=== PATIENT | male | born 1965 | race Caucasian/White ===

== ENCOUNTER 2017-04-16 10:43 | Emergency (ER) | payer MEDICARE, MEDICAID ==
[2017-04-16 10:54] VITALS: BP 117/54
--- NOTE | 2017-04-16 11:53 | UC ---
Abdominal Pain Male HPI - HPI Summary HPI Summary: Yesterday had diarrhea 4-5 times, mostly in the morning. Also felt gurgly tummy with sour burps. Today vomited x 1, also has had about 4 stools today. No loss of appetite, no fever, no belly pain. Denies blood in diarrhea or vomit. Took several months of minocycline for RA, but finished that course a few months ago. Was warned at [facility] that their water had high e. coli levels last week. Also got some blood/fluid in mouth while slaughtering chicken 2 days ago. - History of Current Complaint Chief Complaint: UCGI Stated Complaint: VOMITING/DIARRHEA Time Seen by Provider: 04/16/17 11:25 Hx Obtained From: Patient Radiates: No Aggravating Factor(s):: Food Alleviating Factor(s): Rest Associated Signs And Symptoms: Positive: Vomiting, Diarrhea. Negative: Fever, Cough, Constipation, Blood in Stool, Nausea - Allergies/Home Medications Allergies/Adverse Reactions: Allergies Allergy/AdvReac Type Severity Reaction Status Date / Time No Known Allergies Allergy Verified 04/16/17 10:50 Home Medications: Home Medications Minocycline HCl 50 mg PO 04/16/17 [History] PMH/Surg Hx/FS Hx/Imm Hx - Additional Past Medical History Additional PMH: RA Cardiovascular History: Hypertension Other History Of: Negative For: Anticoagulant Therapy - Surgical History Surgical History: Yes Surgery Procedure, Year, and Place: tonsilectomy. left inguinal hernia repair. ganglion cyst removed from ankle - Family History Known Family History: Positive: Hypertension - Social History Lives: With Family Alcohol Use: None Substance Use Type: None Smoking Status (MU): Heavy Every Day Tobacco Smoker Type: Cigarettes Amount Used/How Often: 1 PPD Length of Time of Smoking/Using Tobacco: 30+ years Have You Smoked in the Last Year: Yes Cessation Counseling: Patient Advised to Stop Review of Systems Constitutional: Negative Skin: Negative Eyes: Negative ENT: Negative Respiratory: Negative Cardiovascular: Negative Gastrointestinal: Vomiting, Diarrhea Genitourinary: Negative Motor: Negative Neurovascular: Negative Musculoskeletal: Negative Neurological: Negative Psychological: Negative All Other Systems Reviewed And Are Negative: Yes Physical Exam Triage Information Reviewed: Yes Appearance: No Pain Distress, Thin Vital Signs: Initial Vital Signs Temp 97.6 F 04/16/17 10:52 Pulse 84 04/16/17 10:52 Resp 14 04/16/17 10:52 BP 117/54 04/16/17 10:52 Pulse Ox 96 04/16/17 10:52 Vital Signs Reviewed: Yes Eye Exam: Normal, Other - PERRL Eyes: Positive: Conjunctiva Clear ENT Exam: Normal ENT: Positive: Normal ENT inspection, Hearing grossly normal, Pharynx normal, TMs normal, Tonsillar swelling Dental Exam: Other - dentures Neck exam: Normal Respiratory Exam: Normal, Other - occ prod cough Respiratory: Positive: Chest non-tender, Lungs clear, Normal breath sounds, No respiratory distress, No accessory muscle use Cardiovascular Exam: Normal Cardiovascular: Positive: RRR, No Murmur Abdomen Description: Positive: Nontender, Soft. Negative: CVA Tenderness (R), CVA Tenderness (L), Distended, Guarding Bowel Sounds: Positive: Present, Hyperactive Musculoskeletal Exam: Normal Neurological Exam: Normal Neurological: Positive: Alert Psychological Exam: Normal Skin Exam: Normal Abd Pain Male Course/Dx - Differential Dx/Clinical Impression Provider Diagnoses: acute diarrhea Discharge - Discharge Plan Condition: Stable Disposition: HOME Patient Education Materials: Acute Diarrhea (ED) Referrals: Sukumar Natarajan DO [Doctor of Osteopathy] - 1 Week Additional Instructions: As we discussed, your symptoms are mild and are likely to resolve within a few days. I have ordered stool testing because of your recent exposure to contaminated water. If your symptoms improve, you can hold back on the stool testing.
== END 2017-04-16 11:52 | disposition home or self-care (01) ==
LOC: UCEAST 10:43
DX: R19.7 Diarrhea, unspecified (principal); R11.10 Vomiting, unspecified; I10 Essential (primary) hypertension; F17.210 Nicotine dependence, cigarettes, uncomplicated
CPT/HCPCS: 99211; G0463

== ENCOUNTER 2017-06-09 10:13 | Emergency (ER) | payer MEDICARE, MEDICAID ==
[2017-06-09 10:25] VITALS: BP 119/73
--- NOTE | 2017-06-09 10:40 | UC ---
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 Has full ROM of arm without pain. Extremity is well perfused and warm to touch with palpable strong radial pulse. States symptoms began approximately three weeks ago after hitting post with sledge hammer while building a fence on his property. Denies other symptoms including facial or lower extremity weakness on right side. Speech is clear and coherent. Past medical history reviewed, medication history reviewed. Mr Cohen reports taking Ibuprofen 1000mg dose, counseled on maximum dosage and frequency of Ibuprofen dosing. - History of Current Complaint Chief Complaint: UCUpperExtremity Stated Complaint: R WRIST PAIN Time Seen by Provider: 06/09/17 10:26 Hx Obtained From: Patient Onset/Duration: Gradual Onset Severity Initially: Moderate Severity Currently: Severe Pain Intensity: 10 Pain Scale Used: 0-10 Numeric Location Of Pain: Radiates To - Right wrist radiates up arm Character: Sharp Aggravating Factor(s): Movement, Lifting Alleviating Factor(s): Rest Associated Signs And Symptoms: Positive: Weakness - Risk Factors Non-Orthopedic Risk Factor: Negative DVT Risk Factors: Negative Septic Arthritis Risk Factor: Negative - Allergies/Home Medications Allergies/Adverse Reactions: Allergies Allergy/AdvReac Type Severity Reaction Status Date / Time No Known Allergies Allergy Verified 06/09/17 10:20 PMH/Surg Hx/FS Hx/Imm Hx Previously Healthy: Yes Other History Of: Negative For: Anticoagulant Therapy - Surgical History Surgical History: Yes Surgery Procedure, Year, and Place: tonsilectomy. left inguinal hernia repair. ganglion cyst removed from ankle - Family History Known Family History: Positive: Hypertension - Social History Alcohol Use: None Substance Use Type: None Smoking Status (MU): Heavy Every Day Tobacco Smoker Type: Cigarettes Amount Used/How Often: 1 PPD Length of Time of Smoking/Using Tobacco: 30+ years Have You Smoked in the Last Year: Yes Review of Systems Constitutional: Negative Skin: Negative Eyes: Negative ENT: Negative Respiratory: Negative Cardiovascular: Negative Gastrointestinal: Negative Genitourinary: Negative Motor: Weakness - Right hand with decreased deputy general counsel strength Neurovascular: Negative Musculoskeletal: Negative Neurological: Negative Psychological: Negative Is Patient Immunocompromised?: No All Other Systems Reviewed And Are Negative: Yes Physical Exam Triage Information Reviewed: Yes Appearance: Well-Appearing Vital Signs: Initial Vital Signs Temp 97.2 F 06/09/17 10:21 Pulse 57 06/09/17 10:21 Resp 16 06/09/17 10:21 BP 119/73 06/09/17 10:21 Pulse Ox 98 06/09/17 10:21 Vital Signs Reviewed: Yes Neck exam: Normal Neck: Positive: Nontender Respiratory Exam: Normal Respiratory: Positive: Lungs clear, Normal breath sounds Cardiovascular Exam: Normal Cardiovascular: Positive: RRR Abdominal Exam: Normal Abdomen Description: Positive: Nontender Bowel Sounds: Positive: Present Musculoskeletal Exam: Other Musculoskeletal: Positive: Strength Limited @ - Right hand Neurological Exam: Normal Neurological: Positive: Alert Psychological Exam: Normal Skin Exam: Normal Upper Extremity Course/Dx - Differential Dx/Diagnosis Differential Diagnosis/HQI/PQRI: Arthritis, Fracture (Closed), Strain, Sprain Provider Diagnoses: Wrist strain / sprain Discharge - Discharge Plan Condition: Stable Disposition: HOME Patient Education Materials: Wrist Injury (ED) Referrals: Sukumar Natarajan DO [Primary Care Provider] - Sabina Summers MD [Medical Doctor] - Additional Instructions: Your X- ray was negative for fracture. Please follow up with orthopedics (Dr Summers) for continued pain and weakness. May return to urgent care or primary medical provider for increased weakness or pain.
--- NOTE | 2017-06-09 10:41 | RAD ---
Indication: Right wrist injury 3 views of the wrist demonstrates no fracture. No other bone or joint abnormality is identified. IMPRESSION: NO FRACTURE OF THE WRIST IS NOTED.
== END 2017-06-09 11:05 | disposition home or self-care (01) ==
LOC: UCEAST 10:13
DX: S63.501A Unspecified sprain of right wrist, initial encounter (principal); X58.XXXA Exposure to other specified factors, initial encounter; Y93.H3 Activity, building and construction; Y92.9 Unspecified place or not applicable; F17.210 Nicotine dependence, cigarettes, uncomplicated
CPT/HCPCS: 99212; G0463

== ENCOUNTER 2017-10-23 14:22 | Emergency (ER) | payer MEDICARE, MEDICAID ==
[2017-10-23 14:40] VITALS: BP 134/97
--- NOTE | 2017-10-23 15:25 | RAD ---
CLINICAL HISTORY: Right pain COMPARISON: None TECHNIQUE: Multiple contiguous axial CT scans were obtained of the abdomen and pelvis, without intravenous contrast enhancement. Coronal and sagittal multiplanar reformations are submitted for review. Oral contrast was not administered. FINDINGS: The study is limited by the lack of intravenous contrast. This limits evaluation of the solid organs and vasculature. Certainly LUNG BASES: There are nodules of the left lower lobe in the periphery, measuring up to 0.6 cm in size. LIVER: The liver is normal in shape, size, contour, and attenuation. BILE DUCTS: There is no intrahepatic or extrahepatic biliary dilatation. GALLBLADDER: The gallbladder is normal, without pericholecystic inflammatory change. PANCREAS: The pancreas is normal, without mass or ductal dilatation. SPLEEN: Normal in size and appearance. UPPER GI TRACT: Evaluation of the gastrointestinal tract is limited by incomplete gastric distention. The upper GI tract is unremarkable. SMALL BOWEL AND MESENTERY: The small bowel is normal in contour, course, and caliber. There is no obstruction or dilatation. COLON: The colon is normal in contour, course, caliber. There is no pericolonic inflammatory change. ADRENALS: Normal bilaterally. KIDNEYS: The kidneys are normal in shape, size, contour, and axis. There is no hydronephrosis or nephrolithiasis. BLADDER: The bladder is incompletely distended and is not well evaluated. PELVIC ORGANS: The prostate is diffusely enlarged. The seminal vesicles are symmetric. AORTA: There is calcific atherosclerotic disease of the abdominal aorta and its branches, without aneurysmal dilatation IVC: Unremarkable LYMPH NODES: There is no lymphadenopathy by size criteria. ABDOMINAL WALL: There is no evidence for abdominal wall hernia. BONES AND SOFT TISSUES: Degenerative changes are noted most pronounced at L4-L5 and L5-S1. There is a chronic appearing compression deformity versus a large Schmorl's node of L2. OTHER: None IMPRESSION: 1. LEFT LOWER LOBE LUNG NODULES MEASURING UP TO 0.6 CM IN SIZE. THE RECOMMENDATIONS FOR FOLLOWUP AND MANAGEMENT OF AN INCIDENTALLY DETECTED PULMONARY NODULE GREATER THAN OR EQUAL TO 6 MM BUT LESS THAN OR EQUAL TO 8 MM IN SIZE, IN A PATIENT WITHOUT A HISTORY OF MALIGNANCY, INCLUDE FOLLOWUP CT IN 6-12 MONTHS, THEN CONSIDER AGAIN AT 18-24 MONTHS FOR A LOW-RISK PATIENT OR FOLLOWUP CT IN 6-12 MONTHS, THEN AGAIN AT 18-24 MONTHS FOR A HIGH RISK PATIENT. 2. ATHEROSCLEROSIS. 3. DEGENERATIVE CHANGES. 4. NO APPRECIABLE HERNIA. NOTES: SIZE = AVERAGE LENGTH AND WIDTH; HIGH RISK IS DEFINED A HISTORY OF SMOKING OR OTHER KNOW RISK FACTORS FOR LUNG CANCER; LOW RISK IS DEFINED MINIMAL OR ABSENT HISTORY OF SMOKING OR OTHER KNOWN RISK FACTORS. Devan Marshall, PORTIA Steele, MAHESH Lawson, et al (2017) "Guidelines for Management of Incidental Pulmonary Nodules Detected on CT Images: From the Fleischner Society 2017." Radiology; 284(1): 228-243. doi:10.1148/radiol.2390034489
--- NOTE | 2017-10-23 15:44 | UC ---
Luciano Eagle Natalie, scribed for Carlos Sanchez MD on 10/23/17 at 1514 . Complaint Male HPI - HPI Summary HPI Summary: The pt is a 52 y/o M presenting to [facility] c/o constant pain in left groin area from bulging hernia worsening in the last two weeks. He has a lifting weight restriction of 20lbs, but whenever he lifts anything, the pain flares up for the last 6 months. The pain is described as constant burning and sore insides. The pain is rated 7/10. The pain is aggravated by eating full meals, lying on left side and is alleviated by nothing. Pt additionally c/o frequent urination ( 4 times/hour) and sleep loss. Pt denies pain in scrotal area. He has had similar episodes in the past after having surgery for the hernia in 2006. - History of Current Complaint Chief Complaint: UCGeneralIllness Stated Complaint: GROIN PAIN Time Seen by Provider: 10/23/17 14:43 Hx Obtained From: Patient Onset/Duration: Gradual Onset, Lasting Weeks - last six months, Still Present, Worse Since - last two weeks Severity Initially: Moderate Severity Currently: Moderate Pain Intensity: 7 Pain Scale Used: 0-10 Numeric Location: Groin - left Character: Burning Aggravating Factor(s): Other - eating full meals, lying on left side Alleviating Factor(s): Nothing - Allergies/Home Medications Allergies/Adverse Reactions: Allergies Allergy/AdvReac Type Severity Reaction Status Date / Time No Known Allergies Allergy Verified 10/23/17 14:40 Home Medications: Home Medications sulfADIAZINE (NF) [SulfADIAZine (NF)] 100 mg PO DAILY 10/23/17 [History Confirmed 10/23/17] PMH/Surg Hx/FS Hx/Imm Hx - Additional Past Medical History Additional PMH: two herniated disks, degenerative spine, rheumatoid arthritis in hands and elbows Other History Of: Negative For: Anticoagulant Therapy - Surgical History Surgical History: Yes Surgery Procedure, Year, and Place: tonsilectomy. left inguinal hernia repair. ganglion cyst removed from ankle - Family History Known Family History: Positive: Hypertension, Other - stroke, [place], prostate cancer, asthma, developed emphysema - Social History Alcohol Use: None Substance Use Type: None Smoking Status (MU): Heavy Every Day Tobacco Smoker Type: Cigarettes Amount Used/How Often: 1 PPD Length of Time of Smoking/Using Tobacco: 30+ years Have You Smoked in the Last Year: Yes Review of Systems Gastrointestinal: Other - left groin pain with bulge Genitourinary: Frequency - frequent urination - 4 times an hour, Other - no scrotal pain Neurological: Other - sleep loss All Other Systems Reviewed And Are Negative: Yes Physical Exam Triage Information Reviewed: Yes Appearance: Well-Appearing, Well-Nourished Vital Signs: Initial Vital Signs Temp 97.4 F 10/23/17 14:34 Pulse 72 10/23/17 14:34 Resp 20 10/23/17 14:34 BP 134/97 10/23/17 14:34 Pulse Ox 97 10/23/17 14:34 Vital Signs Reviewed: Yes Eye Exam: Normal ENT Exam: Normal Neck: Positive: Supple, Nontender Respiratory: Positive: Other: - Clear to auscultation Cardiovascular Exam: Normal Abdominal Exam: Other - small raised lump along left inguinal ligament, no scrotal masses, painful to palpation, no erythema Bowel Sounds: Positive: Present Musculoskeletal Exam: Normal Musculoskeletal: Positive: Strength Intact, ROM Intact Neurological Exam: Normal Neurological: Positive: Other: - A&Ox3 Psychological Exam: Normal Skin: Positive: Other - warm Diagnostics - Radiology CT Abd/Pel Xray Interpretation: No Acute Changes - 1. Left lower lobe lung nodules measuring up to 0.6 cm in size. The recommendations for follow up and management of an incidentally detected pulmonary nodule greater than or equal to 6 mm but less than or equal to 8 mm in size, in a patient without a history of malignancy, include follow up CT in 6-12 months, then consider again at 18- 24 months for a low-risk patient or follow up CT in 6-12 months, then again at 18-24 months for a high risk patient. 2. Atherosclerosis. 3. Degenerative changes. 4. No appreciable hernia. [facility] physician has reviewed this report. Radiology Interpretation Completed By: Radiologist Complaint Male Course/Dx - Course Course Of Treatment: no evidence of bowel herniation on ct, pt feels well, tolerating po, vitals stable, instructed to avoid heavy lifting and to fu with gen surgeon. agrees to and understnasds dc instructinos. - Differential Dx/Diagnosis Provider Diagnoses: INGUINAL PAIN Discharge - Discharge Plan Condition: Stable Disposition: HOME Patient Education Materials: Inguinal Hernia (ED) Forms: *Work Release Referrals: Sukumar Natarajan, [Primary Care Provider] - Bean Moncada MD [Medical Doctor] - Nikolas Torres MD [Medical Doctor] - Abdi Oro MD [Medical Doctor] - Additional Instructions: PLEASE MAKE AN APPOINTMENT TO SEE A GENERAL SURGEON WITHIN 1-2 WEEKS PLEASE AVOID STRENUOUS ACTIVITY AND HEAVY LIFTING PLEASE SEEK MEDICAL ATTENTION IMMEDIATELY IF YOU HAVE ANY WORSENING OR CONCERNING SYMPTOMS PLEASE MAKE AN APPOINTMENT TO BE SEEN BY YOUR PRIMARY CARE DOCTOR WITHIN 1 WEEK The documentation as recorded by the Luciano kerr Natalie accurately reflects the service I personally performed and the decisions made by me, Carlos Sanchez MD.
== END 2017-10-23 15:50 | disposition home or self-care (01) ==
LOC: UCEAST 14:22
DX: R10.32 Left lower quadrant pain (principal); F17.210 Nicotine dependence, cigarettes, uncomplicated
CPT/HCPCS: 74176; 81003; 99211; G0463

== ENCOUNTER 2018-08-20 12:08 | Emergency (ER) | payer MEDICAID, MEDICARE ==
[2018-08-20 12:24] VITALS: BP 149/95
--- NOTE | 2018-08-21 07:58 | UC ---
- Progress Note Progress Note: There were no x-rays ordered on August 20, 2018 therefore there is no discrepancy. Course/Dx - Diagnoses Provider Diagnoses: Patient left without being seen Discharge - Sign-Out/Discharge Documenting (check all that apply): Patient Departure All imaging exams completed and their final reports reviewed: No Studies - Discharge Plan Condition: Stable Disposition: LEFT WITHOUT BEING SEEN Referrals: Shannan Todd MD [Primary Care Provider] - - Billing Disposition and Condition Condition: STABLE Disposition: Left Without Being Seen
== END 2018-08-20 14:37 | disposition left against medical advice (07) ==
LOC: UCEAST 12:08
DX: M25.429 Effusion, unspecified elbow (principal); Z53.21 Procedure and treatment not carried out due to patient leaving prior to being seen by health care provider

== ENCOUNTER 2019-01-14 07:16 | Emergency (ER) | payer MEDICARE ==
[2019-01-14 07:27] VITALS: BP 157/97
--- NOTE | 2019-01-14 07:29 | UC ---
Respiratory Complaint HPI - HPI Summary HPI Summary: 3-4 WEEKS OF COUGH, NASAL CONGESTION AND CHEST CONGESTION WHICH HE FEELS IS GETTING WORSE. FEELS SHORT OF BREATH AND THE COUGH IS KEEPING HIM UP AT NIGHT. HE HAS SUBJECTIVE FEVER AND CHILLS AND FATIGUE. THE PATIENT IS A HEAVY SMOKER. NO NAUSEA/VOMITING. - History of Current Complaint Chief Complaint: UCRespiratory Stated Complaint: COUGH CONGESTION RESP ISSUE Time Seen by Provider: 01/14/19 07:28 Hx Obtained From: Patient Onset/Duration: Gradual Onset, Lasting Weeks, Still Present Timing: Constant Severity Initially: Moderate Severity Currently: Moderate Pain Intensity: 0 Pain Scale Used: 0-10 Numeric Character: Cough: Productive Aggravating Factors: Deep Breaths, Recumbent Position Alleviating Factors: Nothing Associated Signs And Symptoms: Positive: Dyspnea, Fever, Chills, Wheezing, URI, Nasal Congestion, Sinus Discomfort - Allergies/Home Medications Allergies/Adverse Reactions: Allergies Allergy/AdvReac Type Severity Reaction Status Date / Time NSAIDS (Non-Steroidal Allergy JOINT Verified 01/14/19 07:27 Anti-Inflamma STIFFNESS PMH/Surg Hx/FS Hx/Imm Hx Cardiovascular History: Hypertension Other History Of: Negative For: Anticoagulant Therapy - Surgical History Surgical History: Yes Surgery Procedure, Year, and Place: tonsilectomy. left inguinal hernia repair. ganglion cyst removed from ankle - Family History Known Family History: Positive: Hypertension, Other - stroke, [place], prostate cancer, asthma, developed emphysema - Social History Alcohol Use: None Substance Use Type: None Smoking Status (MU): Heavy Every Day Tobacco Smoker Type: Cigarettes Amount Used/How Often: 1 PPD Length of Time of Smoking/Using Tobacco: 30+ years Have You Smoked in the Last Year: Yes Review of Systems All Other Systems Reviewed And Are Negative: Yes Constitutional: Positive: Fever, Chills, Fatigue ENT: Positive: Nasal Discharge, Sinus Congestion Respiratory: Positive: Shortness Of Breath, Cough Cardiovascular: Positive: Negative Gastrointestinal: Positive: Negative Physical Exam Triage Information Reviewed: Yes Appearance: Well-Appearing, No Pain Distress, Well-Nourished Vital Signs: Initial Vital Signs Temp 98.2 F 01/14/19 07:22 Pulse 95 01/14/19 07:22 Resp 22 01/14/19 07:22 BP 157/97 01/14/19 07:22 Pulse Ox 96 01/14/19 07:22 Vital Signs Reviewed: Yes Eyes: Positive: Conjunctiva Clear ENT: Positive: Hearing grossly normal, Pharyngeal erythema, TMs normal Neck: Positive: Supple, Nontender, No Lymphadenopathy Respiratory: Positive: No respiratory distress, No accessory muscle use, Decreased breath sounds, Rhonchi - diffuse Cardiovascular Exam: Normal Abdomen Description: Positive: Soft Musculoskeletal: Positive: No Edema Neurological: Positive: Alert Psychological: Positive: Age Appropriate Behavior Skin: Negative: Rashes Diagnostics - Radiology CXR Radiology Interpretation Completed By: Radiologist Summary of Radiographic Findings: HYPERINFLATION, CONSISTENT WITH COPD. NO ACTIVE CARDIOPULMONARY DISEASE. Respiratory Course/Dx - Differential Dx/Diagnosis Provider Diagnosis: COPD exacerbation Discharge - Sign-Out/Discharge Documenting (check all that apply): Patient Departure All imaging exams completed and their final reports reviewed: Yes - Discharge Plan Condition: Stable Disposition: HOME Prescriptions: Albuterol HFA INHALER* [Ventolin HFA Inhaler*] 2 puff INH Q4H PRN #1 mdi PRN Reason: Shortness Of Breath Azithromycin 500 mg PO DAILY #5 tab predniSONE TAB* [Deltasone TAB*] 50 mg PO DAILY #5 tab Patient Education Materials: COPD (Chronic Obstructive Pulmonary Disease) (ED) Referrals: Jose G Ramsey, SANITARIAN [Primary Care Provider] - 2 Weeks Additional Instructions: CHEST X-RAY TODAY SHOWS CHANGES CONSISTENT WITH COPD BUT NO ACTIVE DISEASE/ PNEUMONIA. GIVEN YOUR UNDERLYING LUNG DISORDER AND THE LENGTH OF TIME OF ILLNESS WILL COVER YOU FOR POSSIBLE DEVELOPING BACTERIAL INFECTION WITH AZITHROMYCIN. TAKE THE MEDICINE ONCE DAILY FOR THE FULL 5 DAYS. WILL ALSO GIVE PREDNISONE AND ALBUTEROL TO HELP WITH AIRWAY INFLAMMATION. FOLLOW-UP WITH YOUR PCP IN THE NEXT COUPLE OF WEEKS IF YOU'RE NOT IMPROVING EXPECTED. YOU WILL ALSO NEED TO DISCUSS YOUR BLOOD PRESSURE WITH HIM IT WAS SLIGHTLY ELEVATED TODAY. THIS MAY BE DUE TO YOUR ACUTE ILLNESS BUT SHOULD BE REASSESSED. CONTINUE WITH YOUR SMOKING CESSATION EFFORTS. - Billing Disposition and Condition Condition: STABLE Disposition: Home
== END 2019-01-14 08:24 | disposition home or self-care (01) ==
LOC: UCEAST 07:16
DX: J44.1 Chronic obstructive pulmonary disease with (acute) exacerbation (principal); R50.9 Fever, unspecified; R09.81 Nasal congestion; I10 Essential (primary) hypertension; Z88.6 Allergy status to analgesic agent; F17.210 Nicotine dependence, cigarettes, uncomplicated
CPT/HCPCS: 71046; 99212; G0463

== ENCOUNTER 2020-08-17 14:02 | Inpatient (IN) ==
[2020-08-17] MEDS ORDERED: Morphine 4 MG/ML VIAL (1 ml) IV ONE (14:29)
[2020-08-17] MEDS ORDERED: Ondansetron 4 mg VIAL 2 MG/ML 2 ml VIAL IV ONE (14:29)
[2020-08-17] MEDS ORDERED: NS 0.9% 1000 ml BAG 1,000 ML IV ONE (14:29)
[2020-08-17 15:02] LABS: ABS Basophils 0.1 10^3/ul (0-0.2); ABS Eosinophils 0.3 10^3/ul (0-0.6); ABS Monocytes 1.3 10^3/ul (0-0.8); ABS Neutrophils 7.3 10^3/ul (1.5-7.7); Eosinophil % 2.3 %; Hematocrit 38 % (42-52); Hemoglobin 12.8 g/dL (14.0-18.0); Lymphocyte % 18.2 %; Mean Corpuscular HGB Conc 34 g/dL (31-36); Mean Corpuscular Hemoglobin 32 pg (27-31); Mean Corpuscular Volume 94 fL (80-94); Mean Platelet Volume 6.3 fL (7.4-10.4); Platelet Count 347 10^3/uL (150-450); Red Blood Count 3.99 10^6 /uL (4.18-5.48); Red Cell Distribution Width 13 % (10-15)
[2020-08-17 15:22] LABS: Albumin 3.8 g/dL (3.2-5.2); BUN/Creatinine Ratio 24.2 (8-20); C Reactive Protein 78.88 mg/L (<8.01); Calcium 8.9 mg/dL (8.6-10.3); EGFR African American 150.5 (>60); EGFR Non-African American 124.4 (>60); Globulin 3.7 g/dL (2-4); Potassium 3.8 mmol/L (3.5-5.0); Total Bilirubin 0.2 mg/dL (0.2-1.0); Total Protein 7.5 g/dL (6.4-8.9)
[2020-08-17] MEDS ORDERED: Iohexol 300 (CONTRAST) 10 ML SDV IV ONE (15:27)
[2020-08-17] MEDS ORDERED: Piperacillin/Tazobac ADVAN 3.375 GM in NS 0.9% 100 ml BAG 100 ML IV ONE (16:01)
[2020-08-17] MEDS ORDERED: Albuterol HFA INHALER 8 gm MDI INH PRN (17:18)
[2020-08-17] MEDS ORDERED: Albuterol 2.5mg/3 ml (0.083%) NEB.SOLN INH PRN (17:18)
[2020-08-17] MEDS ORDERED: Al Hydrox/Mg Hydrox/Simet LIQ 30 ML UDC PO PRN (17:20)
[2020-08-17] MEDS ORDERED: Ondansetron 4 mg VIAL 2 MG/ML 2 ml VIAL IV PRN (17:20)
[2020-08-17] MEDS ORDERED: Zosyn per Pharmacy NOTE FOLLOW UP SCH (18:00)
[2020-08-17] MEDS: Mometasone/Formoter 200/5 MDI INH SCH (20:17)
[2020-08-17] MEDS: NS 0.9% 1000 ml BAG 1,000 ML IV SCH (21:01)
[2020-08-17] MEDS: ZOSYN 3.375 GM Q8H per EXTENDED INFUSION IV SCH (21:02)
[2020-08-18] MEDS: NS 0.9% 1000 ml BAG 1,000 ML IV SCH (04:38)
[2020-08-18] MEDS: ZOSYN 3.375 GM Q8H per EXTENDED INFUSION IV SCH ×3 (04:39→21:49)
[2020-08-18 07:12] LABS: ABS Eosinophils 0.3 10^3/ul (0-0.6); ABS Lymphocytes 1.2 10^3/ul (1.0-4.8); ABS Monocytes 1.1 10^3/ul (0-0.8); ABS Neutrophils 7.2 10^3/ul (1.5-7.7); Eosinophil % 2.9 %; Hematocrit 37 % (42-52); Hemoglobin 12.5 g/dL (14.0-18.0); Lymphocyte % 11.9 %; Mean Corpuscular HGB Conc 33 g/dL (31-36); Mean Corpuscular Hemoglobin 32 pg (27-31); Mean Corpuscular Volume 95 fL (80-94); Mean Platelet Volume 6.2 fL (7.4-10.4); Platelet Count 323 10^3/uL (150-450); Red Blood Count 3.95 10^6 /uL (4.18-5.48); Red Cell Distribution Width 13 % (10-15); White Blood Count 9.8 10^3/uL (3.5-10.8)
[2020-08-18 07:26] LABS: BUN/Creatinine Ratio 16.2 (8-20); C Reactive Protein 63.83 mg/L (<8.01); EGFR African American 145.4 (>60); EGFR Non-African American 120.2 (>60); Potassium 3.7 mmol/L (3.5-5.0)
[2020-08-18] MEDS: Mometasone/Formoter 200/5 MDI INH SCH ×2 (07:36→20:07)
[2020-08-18] MEDS: Nicotine PATCH 21 MG/24 HR PATCH TRANSDERM SCH (10:14)
[2020-08-18] MEDS ORDERED: Polyethylene Glycol 3350 17 GM PACKET PO PRN (17:01)
[2020-08-18] MEDS ORDERED: fentaNYL 100 mcg/2 ml 50 MCG/ML VIAL ONE ×2 (17:31→18:47)
[2020-08-18 19:48] LABS: ABS Basophils 0.1 10^3/ul (0-0.2); ABS Eosinophils 0.1 10^3/ul (0-0.6); ABS Lymphocytes 1.4 10^3/ul (1.0-4.8); ABS Monocytes 0.8 10^3/ul (0-0.8); ABS Neutrophils 9.6 10^3/ul (1.5-7.7); Eosinophil % 0.7 %; Hematocrit 41 % (42-52); Hemoglobin 13.8 g/dL (14.0-18.0); Mean Corpuscular HGB Conc 34 g/dL (31-36); Mean Corpuscular Hemoglobin 31 pg (27-31); Mean Corpuscular Volume 94 fL (80-94); Mean Platelet Volume 6.6 fL (7.4-10.4); Platelet Count 390 10^3/uL (150-450); Red Blood Count 4.41 10^6 /uL (4.18-5.48); Red Cell Distribution Width 12 % (10-15)
[2020-08-18 20:00] LABS: Activated Partial Thrombo Time 33.7 seconds (26.0-38.0); INR 1.15 (0.82-1.09)
[2020-08-18 20:29] LABS: EGFR African American 124.1 (>60); EGFR Non-African American 102.6 (>60)
[2020-08-18] MEDS: Heparin 5000 UNITS/ML 1 mL VIAL SUBCUT SCH (21:49)
[2020-08-19] MEDS: ZOSYN 3.375 GM Q8H per EXTENDED INFUSION IV SCH ×3 (04:42→20:21)
[2020-08-19] MEDS: Heparin 5000 UNITS/ML 1 mL VIAL SUBCUT SCH ×3 (06:03→20:21)
[2020-08-19] MEDS: Nicotine PATCH 21 MG/24 HR PATCH TRANSDERM SCH (07:43)
[2020-08-19] MEDS: Mometasone/Formoter 200/5 MDI INH SCH ×2 (08:21→19:27)
[2020-08-19 10:38] LABS: ABS Basophils 0.1 10^3/ul (0-0.2); ABS Eosinophils 0.2 10^3/ul (0-0.6); ABS Lymphocytes 1.2 10^3/ul (1.0-4.8); ABS Monocytes 1.1 10^3/ul (0-0.8); ABS Neutrophils 8.7 10^3/ul (1.5-7.7); Eosinophil % 1.7 %; Hematocrit 37 % (42-52); Hemoglobin 12.1 g/dL (14.0-18.0); Lymphocyte % 10.5 %; Mean Corpuscular HGB Conc 33 g/dL (31-36); Mean Corpuscular Hemoglobin 31 pg (27-31); Mean Corpuscular Volume 94 fL (80-94); Mean Platelet Volume 6.5 fL (7.4-10.4); Platelet Count 354 10^3/uL (150-450); Red Blood Count 3.89 10^6 /uL (4.18-5.48); Red Cell Distribution Width 13 % (10-15); White Blood Count 11.2 10^3/uL (3.5-10.8)
[2020-08-19] MEDS ORDERED: Senna TAB 8.6 mg TAB PO PRN (13:14)
[2020-08-20] MEDS: Heparin 5000 UNITS/ML 1 mL VIAL SUBCUT SCH ×3 (05:07→21:49)
[2020-08-20] MEDS: ZOSYN 3.375 GM Q8H per EXTENDED INFUSION IV SCH (05:07)
[2020-08-20 05:20] LABS: ABS Eosinophils 0.4 10^3/ul (0-0.6); ABS Lymphocytes 1.9 10^3/ul (1.0-4.8); ABS Neutrophils 4.9 10^3/ul (1.5-7.7); Eosinophil % 4.6 %; Hematocrit 33 % (42-52); Hemoglobin 11.2 g/dL (14.0-18.0); Lymphocyte % 23.4 %; Mean Corpuscular HGB Conc 34 g/dL (31-36); Mean Corpuscular Hemoglobin 32 pg (27-31); Mean Corpuscular Volume 93 fL (80-94); Mean Platelet Volume 6.3 fL (7.4-10.4); Platelet Count 327 10^3/uL (150-450); Red Cell Distribution Width 13 % (10-15); White Blood Count 8.2 10^3/uL (3.5-10.8)
[2020-08-20] MEDS: Nicotine PATCH 21 MG/24 HR PATCH TRANSDERM SCH (07:22)
[2020-08-20] MEDS: Mometasone/Formoter 200/5 MDI INH SCH ×2 (07:42→20:13)
[2020-08-20] MEDS: cefTRIAXone 1 gm/50 mL NS BAG 1 GM/50 ML BAG IVPB SCH (12:10)
[2020-08-20] MEDS: metroNIDAZOLE IV 500 MG/100ML 500 MG/100 ML BAG IVPB SCH ×2 (13:01→23:50)
[2020-08-21 05:29] LABS: ABS Eosinophils 0.4 10^3/ul (0-0.6); ABS Lymphocytes 2.2 10^3/ul (1.0-4.8); ABS Monocytes 0.8 10^3/ul (0-0.8); ABS Neutrophils 4.1 10^3/ul (1.5-7.7); Eosinophil % 5.7 %; Hematocrit 33 % (42-52); Hemoglobin 11.2 g/dL (14.0-18.0); Lymphocyte % 28.6 %; Mean Corpuscular HGB Conc 34 g/dL (31-36); Mean Corpuscular Hemoglobin 32 pg (27-31); Mean Corpuscular Volume 94 fL (80-94); Mean Platelet Volume 6.6 fL (7.4-10.4); Platelet Count 337 10^3/uL (150-450); Red Blood Count 3.53 10^6 /uL (4.18-5.48); Red Cell Distribution Width 13 % (10-15); White Blood Count 7.5 10^3/uL (3.5-10.8)
[2020-08-21 05:41] LABS: BUN/Creatinine Ratio 28.3 (8-20); Calcium 8.6 mg/dL (8.6-10.3); EGFR Non-African American 138.9 (>60); Potassium 3.9 mmol/L (3.5-5.0)
[2020-08-21] MEDS: Heparin 5000 UNITS/ML 1 mL VIAL SUBCUT SCH ×3 (05:48→21:05)
[2020-08-21] MEDS: Nicotine PATCH 21 MG/24 HR PATCH TRANSDERM SCH (07:31)
[2020-08-21] MEDS: Mometasone/Formoter 200/5 MDI INH SCH ×2 (08:01→19:13)
[2020-08-21] MEDS: cefTRIAXone 1 gm/50 mL NS BAG 1 GM/50 ML BAG IVPB SCH (11:05)
[2020-08-21] MEDS: metroNIDAZOLE IV 500 MG/100ML 500 MG/100 ML BAG IVPB SCH (12:42)
[2020-08-22] MEDS: metroNIDAZOLE IV 500 MG/100ML 500 MG/100 ML BAG IVPB SCH ×2 (00:34→11:43)
[2020-08-22] MEDS: Heparin 5000 UNITS/ML 1 mL VIAL SUBCUT SCH ×2 (04:59→13:31)
[2020-08-22] MEDS: Nicotine PATCH 21 MG/24 HR PATCH TRANSDERM SCH (07:01)
[2020-08-22] MEDS: Mometasone/Formoter 200/5 MDI INH SCH (09:38)
[2020-08-22] MEDS: cefTRIAXone 1 gm/50 mL NS BAG 1 GM/50 ML BAG IVPB SCH (11:15)
[2020-08-22 11:54] VITALS: BP 139/72
== END 2020-08-22 15:15 | disposition home or self-care (01) | DRG 377 ==
LOC: ED 14:02 → MEDTELE 17:20
PROVIDERS: ADMIT Pediatrics; ATTEND Pediatrics